=== PATIENT | male | born 1980 | race Caucasian/White ===

== ENCOUNTER 2017-02-20 00:12 | Emergency (ER) | payer SELFPAY ==
[~2017-02-20] VITALS: Ht 165.1 cm; Wt 54.4 kg
[~2017-02-20 00:12] MED LIST: PREDNISONE PO; ULTRAM PO
== END 2017-02-20 02:26 | disposition home or self-care (01) ==
LOC: SED 00:12
DX: F10.129 Alcohol abuse with intoxication, unspecified (principal); F17.200 Nicotine dependence, unspecified, uncomplicated
CPT/HCPCS: 36415; 99284; G0480